=== PATIENT | male | born 1960 | race African-American/Black ===

== ENCOUNTER 2017-06-22 11:04 | Emergency (ER) | payer MEDICAID ==
[~2017-06-22] VITALS: Ht 177.8 cm; Wt 88.5 kg
[2017-06-22 11:10] VITALS: BP 139/88
[2017-06-22] MEDS ORDERED: KETOROLAC TROMETH 60MG/2ML VIAL IM ONE (12:15)
[2017-06-22] MEDS ORDERED: HYDROcodone-ACET 5/325MG TAB PO ONE (12:15)
== END 2017-06-22 12:56 | disposition home or self-care (01) ==
LOC: ER 11:04
DX: M54.12 Radiculopathy, cervical region (principal); J45.909 Unspecified asthma, uncomplicated
CPT/HCPCS: 72040; 72125; 96372; 99284; J1885

== ENCOUNTER 2021-03-19 22:21 | Inpatient (IN) | payer SELFPAY ==
[~2021-03-19] VITALS: Ht 175.3 cm; Wt 81.6 kg
[2021-03-20] MEDS ORDERED: IPRATROPIUM BROM 0.5 MG/2.5ML INH SOL NEB ONE (00:30)
[2021-03-20] MEDS ORDERED: ALBUTEROL SULF 2.5 MG/0.5ML(0.5%) NEB SOLN NEB ONE (00:30)
[2021-03-20] MEDS ORDERED: DexAMETHasone INJECTION 10 MG in D5W 5% 50 ML IV ONE (00:30)
[2021-03-20] MEDS ORDERED: SIMETHICONE 80 MG CHEWABLE TABLET PO ONE (00:45)
[2021-03-20] MEDS ORDERED: guaiFENesin-CODEINE Liq 5 ML UD PO ONE (01:45)
[2021-03-20] MEDS ORDERED: DexAMETHasone SOD PHOS 10MG/1ML VIAL INJ ONE (02:08)
[2021-03-20 02:33] LABS: Basophils # (auto) 0 10 ^3/uL (0-0.2); Basophils % (auto) 0.7 % (0.0-2.0); Eosinophils # (auto) 0 10 ^3/uL (0-0.8); Eosinophils % (auto) 0.6 % (0.0-7.0); Hematocrit 42.6 % (41.0-53.0); Hemoglobin 13.7 g/dL (13.5-17.5); Lymphocytes # (auto) 1.2 10 ^3/uL (0.4-5.4); Lymphocytes % (auto) 28.1 % (10.0-50.0); Mean Corpuscular Hemoglobin 27.5 pg (28.0-32.0); Mean Corpuscular Hgb Conc. 32.3 g/dL (32.0-36.0); Mean Corpuscular Volume 85.3 fL (80.0-100.0); Monocytes # (auto) 0.6 10 ^3/uL (0-1.3); Monocytes % (auto) 12.8 % (0.0-12.0); Neutrophils # (auto) 2.5 10 ^3/uL (1.6-8.6); Neutrophils % (auto) 57.8 % (37.0-80.0); Nucleated Red Blood Cells % 0.2 %; Red Blood Cells 4.99 10^6/uL (4.5-5.90); Red Cell Distribution Width 14.3 % (11.8-14.3); White Blood Cell 4.4 10^3/uL (4.4-10.8)
[2021-03-20 02:45] LABS: Lactic Acid w/Reflex 2.7 mmol/L (0.4-2.0)
[2021-03-20 03:16] LABS: Albumin 3.6 g/dL (3.4-5.0); Calcium 9.4 mg/dL (8.5-10.1); Magnesium 2.1 mg/dL (1.6-2.6); Potassium 4.9 mmol/L (3.5-5.1)
[2021-03-20 03:19] LABS: BUN/Creatinine Ratio 14.3
[2021-03-20 03:22] LABS: Bilirubin, Total 2.1 mg/dL (0.2-1.0); Total Protein 7.7 g/dL (6.4-8.2)
[2021-03-20] MEDS ORDERED: IOHEXOL 350 MG/ML 100ML IJ ONE (04:37)
[2021-03-20] MEDS ORDERED: IPRATROPIUM BROM 0.5 MG/2.5ML INH SOL NEB PRN (07:15)
[2021-03-20] MEDS ORDERED: MORPHINE SULFATE INJECTION 2 MG/ML SYRG IV PRN (07:15)
[2021-03-20] MEDS ORDERED: ACETAMINOPHEN 325 MG TAB PO PRN (07:15)
[2021-03-20] MEDS ORDERED: NITROGLYCERIN 0.4 MG SL TAB SL PRN (07:15)
[2021-03-20] MEDS ORDERED: ONDANSETRON HCL 4 MG/2 ML VIAL IV PRN (07:15)
[2021-03-20] MEDS ORDERED: DOCUSATE SOD 100 MG CAP PO PRN (07:15)
[2021-03-20] MEDS ORDERED: ALBUTEROL SULF 2.5 MG/0.5ML(0.5%) NEB SOLN NEB PRN (07:15)
[2021-03-20] MEDS ORDERED: HYDROcodone-ACET 5/325MG TAB PO PRN (07:15)
[2021-03-20] MEDS ORDERED: cefTRIAXone 1GM/50ML D5W 50 ML IV ONE (09:15)
[2021-03-20] MEDS ORDERED: FUROSEMIDE 40 MG/4 ML VIAL IV SCH (10:00)
[2021-03-20] MEDS ORDERED: ENOXAPARIN SOD 40 MG/0.4 ML SYRINGE SC SCH (10:00)
[2021-03-20] MEDS ORDERED: AZITHROMYCIN 500MG/ 250ML 250 ML IV SCH (10:00)
[2021-03-20] MEDS ORDERED: CARVEDILOL 12.5 MG TAB PO SCH (10:00)
[2021-03-20] MEDS ORDERED: ASCORBIC ACID 500 MG TAB PO SCH (10:00)
[2021-03-20] MEDS ORDERED: DexAMETHasone INJECTION 10 MG in D5W 5% 50 ML IV SCH (10:00)
[2021-03-20] MEDS ORDERED: ZINC SULFATE 220mg CAP or TAB PO SCH (10:00)
[2021-03-20 10:13] LABS: Basophils # (auto) 0 10 ^3/uL (0-0.2); Basophils % (auto) 0.2 % (0.0-2.0); Eosinophils # (auto) 0 10 ^3/uL (0-0.8); Eosinophils % (auto) 0.1 % (0.0-7.0); Hemoglobin 13.6 g/dL (13.5-17.5); Lymphocytes # (auto) 0.6 10 ^3/uL (0.4-5.4); Lymphocytes % (auto) 21.1 % (10.0-50.0); Mean Corpuscular Hemoglobin 27.6 pg (28.0-32.0); Mean Corpuscular Hgb Conc. 32.4 g/dL (32.0-36.0); Mean Corpuscular Volume 85.2 fL (80.0-100.0); Monocytes # (auto) 0.1 10 ^3/uL (0-1.3); Monocytes % (auto) 4.5 % (0.0-12.0); Neutrophils # (auto) 2.2 10 ^3/uL (1.6-8.6); Neutrophils % (auto) 74.1 % (37.0-80.0); Nucleated Red Blood Cells % 0.3 %; Red Blood Cells 4.93 10^6/uL (4.5-5.90); Red Cell Distribution Width 14.4 % (11.8-14.3); White Blood Cell 2.9 10^3/uL (4.4-10.8)
[2021-03-20 10:27] LABS: Albumin 3.6 g/dL (3.4-5.0); Calcium 9.1 mg/dL (8.5-10.1); Potassium 5.1 mmol/L (3.5-5.1)
[2021-03-20 10:32] LABS: BUN/Creatinine Ratio 15.1; Bilirubin, Total 2.5 mg/dL (0.2-1.0); Total Protein 7.8 g/dL (6.4-8.2)
[2021-03-20] MEDS: FAMOTIDINE (10MG/ML) 2ML VL IV SCH ×2 (11:03→21:22)
[2021-03-20] MEDS: MULTIPLE VITAMIN TAB PO SCH (11:04)
[2021-03-20] MEDS: LEVALBUTEROL HCL 1.25 MG/3 ML NEB NEB SCH ×2 (12:25→18:03)
[2021-03-20] MEDS: IPRATROPIUM BROM 0.5 MG/2.5ML INH SOL NEB SCH ×2 (12:25→19:03)
[2021-03-20] MEDS ORDERED: dilTIAZem 25 MG/5 ML VIAL IV ONE (12:30)
[2021-03-20] MEDS ORDERED: ETOMIDATE (2MG/ML) 20ML VIAL IV ONE (12:47)
[2021-03-20] MEDS ORDERED: SUCCINYLCHOLINE CHLORIDE 20 MG/ML 10ML VIAL IV ONE (12:47)
[2021-03-20] MEDS: MIDAZOLAM DRIP 50 mg/50mL 50 ML IV SCH (14:37)
[2021-03-20 14:42] LABS: Urine Bacteria NONE SEEN /hpf (None Seen); Urine Blood Negative /uL (Negative); Urine Mucus FEW (None Seen); Urine WBC <1 /hpf (0 - 3)
[2021-03-20 14:50] VITALS: BP 47/22
[2021-03-20 14:55] LABS: Urine Specific Gravity > 1.050 (1.001-1.035)
[2021-03-20] MEDS: NOREPINEPHRINE 8 MG/250ML KIT 250 ML IV SCH (15:06)
[2021-03-20] MEDS: SODIUM CHLOR 0.9% PF (SALINE LOCK) 10ML VIAL/SYR IV SCH ×2 (15:07→21:22)
[2021-03-20] MEDS: FUROSEMIDE 40 MG/4 ML VIAL IV SCH (17:59)
[2021-03-20 19:03] VITALS: BP 97/20
[2021-03-20] MEDS: BUDESONIDE (INHALATION) 0.5 MG/2 ML NEB NEB SCH (19:03)
[2021-03-20] MEDS: VASOPRESSIN 50 UNITS in D5W 5% 247.5 ML IV SCH ×2 (19:15→21:56)
[2021-03-20] MEDS: fentaNYL Drip 2500mCg/250mlNS 250 ML IV SCH (20:50)
[2021-03-20] MEDS: ENOXAPARIN SOD 80 MG/0.8ML SYRINGE SC SCH (21:22)
[2021-03-20 22:07] VITALS: BP 96/48
[2021-03-21] MEDS ORDERED: DOBUTamine 1000MCG/ML 250 ML IV ONE (00:20)
[2021-03-21] MEDS: LEVALBUTEROL HCL 1.25 MG/3 ML NEB NEB SCH ×4 (00:23→18:00)
[2021-03-21] MEDS: IPRATROPIUM BROM 0.5 MG/2.5ML INH SOL NEB SCH ×4 (00:23→18:00)
[2021-03-21] MEDS: DOBUTamine 1000MCG/ML 250 ML IV SCH ×5 (00:42→16:13)
[2021-03-21] MEDS ORDERED: SODIUM BICARBONATE 8.4 % INJ 50ML VIAL IV ONE ×3 (01:45→05:45)
[2021-03-21] MEDS ORDERED: FUROSEMIDE 40 MG/4 ML VIAL IV ONE (02:00)
[2021-03-21 02:05] VITALS: BP 91/16
[2021-03-21] MEDS: PHENYLEPHRINE IV 250 ML IV SCH ×4 (03:02→16:13)
[2021-03-21] MEDS: SODIUM CHLOR 0.9% PF (SALINE LOCK) 10ML VIAL/SYR IV SCH ×2 (05:05→14:06)
[2021-03-21] MEDS: FUROSEMIDE 40 MG/4 ML VIAL IV SCH ×2 (05:05→18:00)
[2021-03-21] MEDS ORDERED: dilTIAZem 25 MG/5 ML VIAL IV ONE (05:45)
[2021-03-21] MEDS: BUDESONIDE (INHALATION) 0.5 MG/2 ML NEB NEB SCH (05:59)
[2021-03-21 06:02] VITALS: BP 82/42
[2021-03-21 06:16] LABS: Amphetamine Screen, Urine POSITIVE (NEGATIVE); Barbiturate Scree,Urine NEGATIVE (NEGATIVE); Benzodiazephine Screen, Urine NEGATIVE (NEGATIVE); Cannabinoid Screen, Urine NEGATIVE (NEGATIVE); Cocaine Screen, Urine NEGATIVE (NEGATIVE); Opiate Scree,Urine POSITIVE (NEGATIVE); Phencyclidine Screen, Urine NEGATIVE (NEGATIVE)
[2021-03-21 07:01] LABS: Albumin 2.4 g/dL (3.4-5.0); BUN/Creatinine Ratio 11.8; Calcium 7.5 mg/dL (8.5-10.1)
[2021-03-21 07:09] LABS: Bilirubin, Total 3.2 mg/dL (0.2-1.0); Total Protein 5.1 g/dL (6.4-8.2)
[2021-03-21 07:24] LABS: Potassium 5.9 mmol/L (3.5-5.1)
[2021-03-21 08:08] LABS: Basophils # (auto) 0 10 ^3/uL (0-0.2); Eosinophils # (auto) 0 10 ^3/uL (0-0.8); Lymphocytes # (auto) 0.4 10 ^3/uL (0.4-5.4); Mean Corpuscular Volume 87.1 fL (80.0-100.0); Monocytes # (auto) 0.6 10 ^3/uL (0-1.3); White Blood Cell 15.6 10^3/uL (4.4-10.8)
[2021-03-21 08:09] LABS: Basophils % (auto) 0.2 % (0.0-2.0); Eosinophils % (auto) 0.2 % (0.0-7.0); Hematocrit 38.6 % (41.0-53.0); Hemoglobin 11.9 g/dL (13.5-17.5); Lymphocytes % (auto) 2.5 % (10.0-50.0); Mean Corpuscular Hemoglobin 26.8 pg (28.0-32.0); Mean Corpuscular Hgb Conc. 30.8 g/dL (32.0-36.0); Monocytes % (auto) 3.9 % (0.0-12.0); Neutrophils # (auto) 14.5 10 ^3/uL (1.6-8.6); Neutrophils % (auto) 93.2 % (37.0-80.0); Nucleated Red Blood Cells % 0.2 %; Red Blood Cells 4.43 10^6/uL (4.5-5.90); Red Cell Distribution Width 14.4 % (11.8-14.3)
[2021-03-21] MEDS ORDERED: cefTRIAXone 1GM/50ML D5W 50 ML IV SCH (09:00)
[2021-03-21] MEDS: MULTIPLE VITAMIN TAB PO SCH ×2 (10:00→10:33)
[2021-03-21 10:27] VITALS: BP 98/40
[2021-03-21] MEDS: FAMOTIDINE (10MG/ML) 2ML VL IV SCH (10:29)
[2021-03-21] MEDS: ENOXAPARIN SOD 80 MG/0.8ML SYRINGE SC SCH (10:30)
[2021-03-21] MEDS ORDERED: SODIUM BICARBONATE 50ML VIAL 50 ML in SOD CHL 0.45% 1,000 ML IV SCH (12:45)
[2021-03-21] MEDS: NOREPINEPHRINE 8 MG/250ML KIT 250 ML IV SCH (13:06)
[2021-03-21] MEDS ORDERED: BUMETANIDE 2.5mg/10ml (0.25 mg/ml) INJ IV ONE (13:15)
[2021-03-21] MEDS ORDERED: SODIUM ZIRCONIUM CYCL 10 GM PAK PO ONE (13:15)
[2021-03-21 13:18] VITALS: BP 84/34
[2021-03-21] MEDS ORDERED: PIPERACILLIN-TAZOB 2.25GM 50 ML IV STA (13:56)
[2021-03-21] MEDS: fentaNYL Drip 2500mCg/250mlNS 250 ML IV SCH (16:18)
[2021-03-21] MEDS: MIDAZOLAM DRIP 50 mg/50mL 50 ML IV SCH (16:19)
[2021-03-21] MEDS ORDERED: DOPamine 1600MCG/ML D5W 250 ML IV SCH (17:15)
[2021-03-21] MEDS ORDERED: MORPHINE SULFATE INJECTION 2 MG/ML SYRG IV PRN (18:45)
[2021-03-21] MEDS ORDERED: LORazepam 2MG/ML-1ML VIAL IV PRN (18:45)
[2021-03-21 19:02] VITALS: BP 0/0
[2021-03-21] MEDS ORDERED: PIPERACILLIN-TAZOB 2.25GM 50 ML IV SCH (22:00)
== END 2021-03-21 19:02 | DRG 208 ==
LOC: ER 22:21 → TELE 03-20 07:10
PROVIDERS: ADMIT Nurse Practitioner Family; ATTEND Internal Medicine
PROC: 5A1945Z Respiratory Ventilation, 24-96 Consecutive Hours (ICD-10-PCS; principal; 2021-03-20)
PROC: 0BH17EZ Insertion of Endotracheal Airway into Trachea, Via Natural or Artificial Opening (ICD-10-PCS; 2021-03-20)
PROC: 05HY33Z Insertion of Infusion Device into Upper Vein, Percutaneous Approach (ICD-10-PCS; 2021-03-20)
DX: J18.9 Pneumonia, unspecified organism (principal); I50.43 Acute on chronic combined systolic (congestive) and diastolic (congestive) heart failure; G93.41 Metabolic encephalopathy; J96.00 Acute respiratory failure, unspecified whether with hypoxia or hypercapnia; N17.0 Acute kidney failure with tubular necrosis; E87.2 Acidosis; I42.9 Cardiomyopathy, unspecified; I13.0 Hypertensive heart and chronic kidney disease with heart failure and stage 1 through stage 4 chronic kidney disease, or unspecified chronic kidney disease; I48.92 Unspecified atrial flutter; I48.91 Unspecified atrial fibrillation; E87.5 Hyperkalemia; J45.909 Unspecified asthma, uncomplicated; N18.9 Chronic kidney disease, unspecified; Z20.822 Contact with and (suspected) exposure to COVID-19; E66.9 Obesity, unspecified; F10.10 Alcohol abuse, uncomplicated; F15.10 Other stimulant abuse, uncomplicated; Z68.26 Body mass index [BMI] 26.0-26.9, adult
CPT/HCPCS: 36415; 36600; 71045; 71275; 76775; 80053; 80307; 81001; 82805; 83605; 83735; 83880; 84484; 85025; 85379; 87040; 87070; 87205; 87426; 93005; 93306; 94002; 94003; 94640; 96365; G0378; J0330; J0696; J1100; J2250; J2405; J2543; J3490; J7060